=== PATIENT | female | born 1995 | race Caucasian/White ===

== ENCOUNTER 2022-01-26 17:16 | Outpatient (CLI) | payer OTHER, SELFPAY ==
--- OUTSIDE RECORDS SUMMARY | 2022-01-28 13:19 | XMS_ITS ---
:1995 Author Care Team Providers Name Role Phone PHYLLIS IZQUIERDO Primary Care Provider [phone] Allergies Code Code System Name Reaction Severity Status Onset Sulfa (Sulfonamide Antibiotics) ? ? Active ? Tree Nut ? ? Active ? Medications Name Status Start Date Stop Date ? ? Adderall Active ? Not available Enpresse 50-30 (6)/75-40(5)/125-30(10) tablet Active ? Not available Zyrtec Active ? Not available Problems Name Status Onset Date Source ? Urinary Tract Infectious Disease Active 10/31/2012 History Procedures Date Name Performed by ? 01/17/2020 , Renal [address] [address] (Work Place) Results Lab Results Date Name Specimen Result Interpretation Description Value Range Status Address ? ? Urinalysis, Dipstick ? No observation ? ? ? [facility]: recorded. [address] [facility] [address], [place] ? Bladder Scan (PROC) ? Volume (in mL) 0 mLs ? ? [facility]: [address] [facility] [address], [place] ? Urinalysis, Dipstick ? pH-Status 6.5 ? ? [facility]: [address] [facility] [address], [place] ? ? ? Blood-Status Large ? ? [facility]: [address] [facility] [address], [place] Past Encounters None recorded. Social History Tobacco Smoking Status Never Smoker Vaccine List None recorded. Plan of Care Reminders Provider Appointments None recorded. ? ? Lab None recorded. ? ? Referral None recorded. ? ? Procedures None recorded. ? ? Surgeries None recorded. ? ? Imaging None recorded. ? ? Vitals Height Weight BMI 5 ft 4 in 146 lbs 25.1 kg/m2
== END 2022-01-26 17:17 | disposition home or self-care (01) ==
LOC: LKVREF 01-28 13:18
PROVIDERS: PCP Emergency Medicine; Visit Provider Registered Nurse
DX: R30.0 Dysuria (principal); N39.0 Urinary tract infection, site not specified
CPT/HCPCS: 87086

== ENCOUNTER 2022-10-23 07:58 | Outpatient (CLI) | payer OTHER, SELFPAY ==
--- NOTE | 2022-10-23 08:15 | CRLHL7_ITS ---
For Patients: As a result of the Cures Act, medical imaging exams and procedure reports are released immediately into your electronic medical record. You may view this report before your referring provider. If you have questions, please contact your health care provider. BILATERAL BREAST ULTRASOUND CLINICAL HISTORY: BILATERAL breast pain. COMPARISON: None. TECHNIQUE: Real-time ultrasound imaging of BILATERAL breast with imaging documentation. FINDINGS: BILATERAL breast ultrasound performed in the periareolar tissues. Normal dense tissue is present. No evidence of papilloma or mass. No fibrocystic change or abscess. IMPRESSION: Normal BILATERAL dense breast tissue. No suspicious findings. RECOMMENDATIONS: Clinical follow-up. Results and recommendations were discussed with the patient at the time of the exam. BI-RADS Category 1: Negative Dictated by Amrik Huddleston MD @ 10/23/2022 9:11:08 AM jj/Dictated by: Amrik Huddleston MD @ 10/23/2022 9:11:00 AM (Electronically Signed)
== END 2022-10-23 07:59 | disposition home or self-care (01) ==
LOC: US 07:59
PROVIDERS: PCP Family Medicine; Visit Provider Family Medicine
DX: N64.4 Mastodynia (principal); N64.59 Other signs and symptoms in breast
CPT/HCPCS: 76642

== ENCOUNTER 2023-08-05 15:34 | Outpatient (CLI) | payer OTHER, SELFPAY ==
--- OUTSIDE RECORDS SUMMARY | 2023-08-05 15:37 | XMS_ITS | Clinical Summary ---
Author Name Unknown [facility] Address [address] [place] [address] Care Team Providers Care Stem Assembler Name Role Phone Mery Sheehan STEVEN Primary Care Provider [phone] Source Comments You are receiving this document as you are listed as the primary care provider,follow-up provider, or the patient has been referred to you for consultation.This is in compliance with the Medicare and[facility] EHR Incentive Program,which states Providers who transition their patient to another setting of careor provider of care or refers their patient to another provider of care shouldprovide summary care record for each transition of care or referral. [facility] Allerg[facility] Active Allergy Reactions Criticality Noted Date Comments Sulfa Antibiotics 06/13/2012 Medications Medication Sig Dispensed Refills Start Date End Date Status amphetamine-dextroamphe tamine (ADDERALL XR) 15 MG 24 hour release capsule Take 15 mg by mouth daily. Active Cetirizine HCl (ZYRTEC ALLERGY) 10 MG CAPS Take 10 mg by mouth daily. 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 CLEANER Pulse 68 04/24/2016 1:09 PM BLADDER CLEANER Temperature - - Respiratory Rate - - Oxygen Saturation - - Inhaled Oxygen Concentration - - Weight 61.1 kg (134 lb 12.8 oz) 04/24/2016 1:09 PM BLADDER CLEANER Height 162.6 cm (5' 4) 04/24/2016 1:09 PM BLADDER CLEANER Body Mass Index 23.14 04/24/2016 1:09 PM BLADDER CLEANER Plan of Treatment Health Maintenance Due Date Last Done Comments Cervical Cancer Screening Due 1995 Hep C Screening (Preventive Services) 1997 HPV Vaccine (1 - 3-dose series) 2012 HIV Screening (Preventive Services) 2013 Adult Preventive Visit 2015 DTaP/Tdap/Td (1 - Tdap) 2016 HepB (1) 2016 COVID-19 Vaccine ( - 2022-2 4 season) 2022 Influenza (#1) 2022 Zoster/Shingles (1 of 2) 2047 HepA Aged Out No longer eligi ble based on patient's age to complete this topic Hib Aged Out No longer eligi ble based on patient's age to complete this topic IPV (Polio) Aged Out No longer eligi ble based on patient's age to complete this topic MCV4 Aged Out No longer eligi ble based on patient's age to complete this topic Pneumococcal Aged Out No longer eligi ble based on patient's age to complete this topic Care Teams Stem Assembler Relationship Specialty Start Date End Date Mery Sheehan PA-C [address] [place] [address] [facility] - General 06/13/12
[2023-08-05 23:10] LABS: Chlamydia DNA Amplified* NOT DETECTED (No Detected); GC DNA Amplified* NOT DETECTED (No Detected)
== END 2023-08-05 15:35 | disposition home or self-care (01) ==
PROVIDERS: PCP Family Medicine; Visit Provider Registered Nurse
DX: Z11.3 Encounter for screening for infections with a predominantly sexual mode of transmission (principal); Z13.29 Encounter for screening for other suspected endocrine disorder; Z13.1 Encounter for screening for diabetes mellitus; Z13.220 Encounter for screening for lipoid disorders
CPT/HCPCS: 80061; 82947; 84443; 86592; 86703; 86803; 87340; 87491; 87591